=== PATIENT | female | born 1995 | race Caucasian/White ===

== ENCOUNTER 2016-06-28 13:40 | Emergency (ER) | payer OTHER ==
[~2016-06-28] VITALS: Ht 160 cm; Wt 66.0 kg
[2016-06-28 14:29] VITALS: Ht 160 cm; Wt 66.0 kg
[2016-06-28 15:38] LABS: ADD SCAN DIFF NO
--- NOTE | 2016-06-28 15:38 | ERD ---
ER Documentation Chief Complaint Date/Time DATE: 06/28/16 TIME: 15:34 Chief Complaint SENT BY PMD FOR EVALUATION FOR ANEMIA.ABDOMINAL PAIN. HPI 21-year-old female who presents for anemia. The patient was sent by primary care physician. She states that over the weekend she had heavy drinking on Monday. On Monday she noted dark, black stool. She denies significant malodor or tardiness of the stool. She denies any hematemesis. She does have mild cramping epigastric abdominal discomfort that is improving. She had a blood test on Monday that showed a hemoglobin in the 8 range. The patient had a remote history of anemia. She does not have heavy menstrual periods. She denies any chest pain or shortness of breath. She describes generalized fatigue. She states that the dark stool has improved and is not present currently. ROS All systems reviewed and are negative except as per history of present illness. PMhx/Soc Medical and Surgical Hx: pt denies Medical Hx, pt denies Surgical Hx Hx Alcohol Use: No Hx Substance Use: No Hx Tobacco Use: No FmHx Family History: No diabetes Physical Exam Vitals Vital Signs Date Time Temp Pulse Resp B/P Pulse Ox O2 Delivery O2 Flow Rate FiO2 06/28/16 14:29 98.2 76 18 126/74 98 Physical Exam General: Well developed, well nourished, no acute distress Head: Normocephalic, atraumatic. Eyes: Pupils equally reactive, EOM intact ENT: Moist mucous membranes Neck: Supple, no lymphadenopathy Respiratory: Lungs clear bilaterally, no distress Cardiovascular: RRR, no murmurs, rubs, or gallops Abdominal: Soft, non-tender, non-distended, no peritoneal signs, no tenderness to McBurney's point, negative Mao sign : Deferred per patient request MSK: No edema, no unilateral swelling, 5/5 strength Neurologic: Alert and oriented, moving all extremities, normal speech, no focal weakness, no cerebellar signs Skin: No rash Psych: Normal mood Result Diagram: 06/28/16 1518 06/28/16 1518 Results 24 hrs Laboratory Tests Test 06/28/16 15:18 06/28/16 15:35 White Blood Count 8.010^3/ul Red Blood Count 4.3410^6/ul Hemoglobin 14.1g/dl Hematocrit 40.4% Mean Corpuscular Volume 93.1fl Mean Corpuscular Hemoglobin 32.5pg Mean Corpuscular Hemoglobin Concent 34.9g/dl Red Cell Distribution Width 11.4% Platelet Count 56492^3/UL Mean Platelet Volume 10.1fl Neutrophils % 63.8% Lymphocytes % 26.2% Monocytes % 7.6% Eosinophils % 1.8% Basophils % 0.5% Nucleated Red Blood Cells % 0.0/100WBC Neutrophils # 5.110^3/ul Lymphocytes # 2.110^3/ul Monocytes # 0.610^3/ul Eosinophils # 0.110^3/ul Basophils # 0.010^3/ul Nucleated Red Blood Cells # 0.010^3/ul Sodium Level 140mmol/L Potassium Level 3.9mmol/L Chloride Level 101mmol/L Carbon Dioxide Level 25mmol/L Anion Gap 18 Blood Urea Nitrogen 11mg/dl Creatinine 0.75mg/dl Glucose Level 80mg/dl Calcium Level 9.3mg/dl Total Bilirubin 0.3mg/dl Direct Bilirubin 0.00mg/dl Indirect Bilirubin 0.3mg/dl Aspartate Amino Transf (AST/SGOT) 19IU/L Alanine Aminotransferase (ALT/SGPT) 25IU/L Alkaline Phosphatase 65IU/L Total Protein 8.3g/dl Albumin 4.6g/dl Globulin 3.70g/dl Albumin/Globulin Ratio 1.24 Lipase 110U/L Serum HCG, Qualitative NEGATIVE Prothrombin Time 14.2Sec Prothrombin Time Ratio 1.1 INR International Normalized Ratio 1.10 Activated Partial Thromboplast Time 28.6Sec Procedures/MDM LAB INTERPRETATION: Hemoglobin 14, no BUN and creatinine abnormality, no microcytic anemia MEDICAL DECISION MAKING: The patient presents with dark stool, episode of heavy drinking over the weekend and mild epigastric abdominal discomfort. Her presentation is likely secondary to alcoholic gastritis consider peptic ulcer disease. The patient did have black stool on Monday but has resolution of this process. Given resolution I do not believe a rectal exam is necessary at this time. Patient agrees. The patient is hemodynamically stable and otherwise well-appearing in the emergency department. She does have a remote history of anemia. Her anemia and blood testing be secondary to iron deficiency rather than acute blood loss. At this time the patient does not appear to have a significant acute upper GI hemorrhage. The patient was started on a PPI by her primary care physician. She took her first dose this morning. I believe it reasonable to recheck laboratory testing including hemoglobin. If the patient's hemoglobin is stable, BUN and creatinine ratio is also normal I do not believe inpatient hospitalization for emergent GI endoscopy is necessary. The patient may benefit from outpatient GI endoscopy, trial of PPI. We discussed return precautions including worsening symptoms, generalized weakness, recurrence of melena. ER COURSE: The patient's hemoglobin is stable. Consider outpatient lab error. The patient continues to be well-appearing, no indication for hospitalization. Outpatient primary care follow-up recommended. I kept the patient and/or family informed of laboratory and diagnostic imaging results throughout the emergency room course. DISPOSITION PLAN: We discussed follow up with the patient's primary care doctor within 24 to 48 hours as needed. We also discussed return to the emergency room for worsening symptoms or worsening condition. Outpatient referral: None required Discharge Medications: Continue primary CARE PPI Departure Diagnosis: Primary Impression: Gastritis Gastritis type: alcoholic Chronicity: acute Gastritis bleeding: without bleeding Qualified Code: K29.20 - Acute alcoholic gastritis without hemorrhage Additional Impression: Encounter for laboratory test Condition: EMY Vasquez MD Jun 28, 2016 15:38
[2016-06-28 15:39] LABS: BASOPHILS % 0.5 % (0.0-2.0); EOSINOPHILS # 0.1 10^3/ul (0.0-0.5); EOSINOPHILS % 1.8 % (0.0-7.0); HEMATOCRIT 40.4 % (37.0-47.0); HEMOGLOBIN 14.1 g/dl (12.0-16.0); LYMPHOCYTES # 2.1 10^3/ul (0.8-2.9); LYMPHOCYTES % 26.2 % (15.0-51.0); MEAN CORPUSCULAR HEMOGLOBIN 32.5 pg (29.0-33.0); MEAN CORPUSCULAR HGB CONC 34.9 g/dl (32.0-37.0); MEAN CORPUSCULAR VOLUME 93.1 fl (82.0-101.0); MEAN PLATELET VOLUME 10.1 fl (7.4-10.4); MONOCYTE # 0.6 10^3/ul (0.3-0.9); MONOCYTES % 7.6 % (0.0-11.0); NEUTROPHIL # 5.1 10^3/ul (1.6-7.5); NEUTROPHILS % 63.8 % (39.0-77.0); PLATELET COUNT 248 10^3/UL (140-415); RED BLOOD COUNT 4.34 10^6/ul (4.20-5.40); RED CELL DISTRIBUTION WIDTH 11.4 % (11.5-14.5)
[2016-06-28 15:55] LABS: ALBUMIN 4.6 g/dl (3.3-4.9)
[2016-06-28 15:56] LABS: POTASSIUM 3.9 mmol/L (3.5-5.1)
[2016-06-28 15:58] LABS: BILIRUBIN,INDIRECT 0.3 mg/dl (0-1.1); BILIRUBIN,TOTAL 0.3 mg/dl (0.2-1.3); CREATININE 0.75 mg/dl (0.44-1.00)
[2016-06-28 15:59] LABS: ALBUMIN/GLOBULIN RATIO 1.24; CALCIUM 9.3 mg/dl (8.4-10.2); TOTAL PROTEIN 8.3 g/dl (6.1-8.1)
[2016-06-28 16:06] LABS: INR 1.1; PROTIME 14.2 Sec (12.2-14.2); PT RATIO 1.1
[2016-06-28 16:07] LABS: PARTIAL THROMBOPLASTIN TIME 28.6 Sec (25.0-35.0)
== END 2016-06-28 16:38 | disposition home or self-care (01) ==
LOC: FTE 13:40
DX: K29.20 Alcoholic gastritis without bleeding (principal); Z00.00 Encounter for general adult medical examination without abnormal findings
CPT/HCPCS: 36415; 80053; 83690; 84703; 85025; 85610; 85730; Z7502; 99283